=== PATIENT | male | born 1960 | race Caucasian/White ===

== ENCOUNTER 2018-06-08 09:51 | Day surgery (SDC) | payer BC, OTHER ==
[~2018-06-08] VITALS: Ht 195.6 cm; Wt 96.4 kg
[~2018-06-08 09:51] MED LIST: FEXO180T61 PO
[2018-06-08 10:50] VITALS: Ht 195.6 cm; Wt 96.4 kg
[2018-06-08] MEDS ORDERED: FENTAnyl 50 MCG/ML VIAL ONE (14:51)
[2018-06-08] MEDS ORDERED: MIDAZOLAM 1 MG/ML 2 ML INJ ONE ×3 (14:51→14:52)
== END 2018-06-08 10:00 | disposition home or self-care (01) ==
LOC: GIL 09:51
PROVIDERS: ATTEND Internal Medicine Gastroenterology
DX: D12.2 Benign neoplasm of ascending colon (principal); D12.4 Benign neoplasm of descending colon; D12.3 Benign neoplasm of transverse colon; K57.30 Diverticulosis of large intestine without perforation or abscess without bleeding
CPT/HCPCS: 45380; 88305; J2250; J3010; Z7610